=== PATIENT | male | born 1975 | race Caucasian/White ===

== ENCOUNTER 2018-08-03 21:16 | Emergency (ER) | payer MEDICAID ==
[~2018-08-03] VITALS: Ht 175.3 cm; Wt 88.6 kg
[2018-08-03 21:50] VITALS: Ht 175.3 cm; Wt 88.6 kg
[2018-08-03] MEDS ORDERED: [UNRECOGNIZED DRUG - OTHER] (21:51)
[2018-08-03] MEDS ORDERED: IBUPROFEN100 MG/5 M (21:51)
[2018-08-03] MEDS ORDERED: ALEVE220 MG (21:51)
[2018-08-04] MEDS ORDERED: TYLENOL W/CODEI1 TAB PO (01:30)
[2018-08-04] MEDS ORDERED: VIBRAMYCIN 100100 MG PO (01:30)
[2018-08-04 02:04] VITALS: BP 128/90
== END 2018-08-04 02:04 | disposition home or self-care (01) ==
LOC: D.ER 21:16
DX: L03.115 Cellulitis of right lower limb (principal); F17.200 Nicotine dependence, unspecified, uncomplicated

== ENCOUNTER 2018-12-30 08:40 | Emergency (ER) | payer MEDICAID ==
[~2018-12-30] VITALS: Ht 175.3 cm; Wt 90.9 kg
[~2018-12-30 08:40] MED LIST: ALEVE220 MG; IBUPROFEN100 MG/5 M; TYLENOL W/CODEI1 TAB PO; VIBRAMYCIN 100100 MG PO; [UNRECOGNIZED DRUG - OTHER]
[2018-12-30 09:00] VITALS: Ht 175.3 cm; Wt 90.9 kg
[2018-12-30] MEDS ORDERED: XARELTO10 MG PO (09:08)
[2018-12-30 09:49] LABS: BASOPHILS 0.8 % (0-2); EOSINOPHILS 5.5 % (0-7); HEMATOCRIT 38.6 % (42.0-54.0); HEMOGLOBIN 12.1 g/dL (13.5-17.5); IMMATURE GRANULOCYTES 0.2 % (0-5); LYMPHOCYTES 20.2 % (15-50); MCH 23.1 pg (26.0-34.0); MCHC 31.3 g/dL (31.0-37.0); MCV 73.7 fL (80.0-100.0); MEAN PLATELET VOLUME 9.2 fL (7.4-10.4); MONOCYTES 9.2 % (2-11); NEUTROPHILS 64.1 % (40-80); PLATELET COUNT 263 10x3/uL (130-400); RBC 5.24 10x6/uL (4.20-6.10); RDW 15.6 % (11.5-14.5); WBC 8.5 10x3/uL (4.8-10.8)
[2018-12-30 09:58] LABS: INR 1.08 (0.85-1.17); PROTIME 13.5 SECONDS (11.6-15.0)
[2018-12-30 09:59] LABS: APTT 32.2 SECONDS (22.8-39.4)
[2018-12-30 10:00] LABS: D-DIMER-QUANTITATIVE 1.17 ug/mLFEU (0.20-0.54)
[2018-12-30 10:03] LABS: ALBUMIN 3.5 g/dL (3.4-5.0); ALKALINE PHOSPHATASE 67 U/L (46-116); ALT (SGPT) 18 U/L (10-68); BILIRUBIN - TOTAL 0.39 mg/dL (0.2-1.3); CALC OSMOLALITY 277 mosm/kg (275-300); CALCIUM 8.9 mg/dL (8.5-10.1); CARBON DIOXIDE 25.1 mmol/L (21.0-32.0); CHLORIDE - SERUM 100 mmol/L (98-107); CREATININE - SERUM 1.2 mg/dL (0.6-1.3); GLUCOSE 117 mg/dL (74-106); POTASSIUM - SERUM 3.6 mmol/L (3.5-5.1); PROTEIN - SERUM 7.8 g/dL (6.4-8.2); SODIUM 138 mmol/L (136-145); UREA NITROGEN 14 mg/dL (7-18); eGFR NON AFRICAN AMERICAN 70 mL/min (90-120)
[2018-12-30 10:08] LABS: TROPONIN-I < 0.017 ng/mL (0.000-0.060)
[2018-12-30 15:59] VITALS: BP 133/88
--- NOTE | 2019-01-02 11:46 | EC ---
PATIENT:NEETA NGUYEN DATE OF SERVICE: 12/30/18 SEX: M MEDICAL RECORD: [id number] DATE OF : [birth year] LOCATION:D.ER AGE OF PATIENT: 43 ADMISSION DATE: 12/30/18 REFERRING PHYSICIAN: INTERPRETING PHYSICIAN: JONY BENITEZ MD ECHOCARDIOGRAM REPORT ECHO CHARGES 4 ECHO COMPLETE Date: 12/30/18 CLINICAL DIAGNOSIS: ECHOCARDIOGRAPHIC MEASUREMENTS (adult normal given) AC root (d.<3.7cm) 3.2 cm LV Septum d (<1.2 cm> 1.1 cm Valve Excursion 2.2 cm LV Septum (systole) 1.7 cm Left Atria (s.<4.0cm> 3.5 cm LVPW d(<1.2cm) 1.3 cm RV (d.<2.3cm) 3.5 cm LVPW (sytole) 1.4 cm LV diastole(<5.6CM) 4.6 cm MV E-F(>70mm/sec) cm LV systole 3.5 cm LVOT Diameter 1.6 cm MV exc.(>10mm) cm Est.ejection fraction (50-75%) % DOPPLER: LVIT cm/sec A 46 cm/sec E 96 cm/sec LA cm/sec RVSP 77.8 mmHg LVOT 95 cm/sec AOP1/2T m/s Asc. Ao 121 cm/sec RVOT 51 cm/sec RA cm/sec PA 93 cm/sec AV Gradient Peak 5.8 mmHg AV Mean 3.2 mmHg AV Area 1.4 cm MV Gradient Peak 4.2 mmHg MV Mean 2.2 mmHg MV Area cm COMMENTS: Drama Director: Palma YEBOAH Vessel Ordinary Seaman: Diann Benitez TAPE# PACS Pericardial Effusion N DATE OF SERVICE: 12/30/2018 FINDINGS: 1. Left ventricular chamber size is within normal limits. Left ventricular systolic function is normal. Overall ejection fraction estimated at 50%. 2. Left atrium is within normal limits at 4.0 cm. Right atrium and right ventricular chamber sizes are moderately dilated. 3. Valvular structures have normal structure and motion. 4. Doppler interrogation reveals moderate tricuspid regurgitation. No other valvular insufficiency or stenosis. Pulmonary systolic pressure is markedly ECHOCARDIOGRAM REPORT [id number] NEETA NGUYEN elevated, estimated 78 mmHg. 5. No evidence of pericardial effusion or left ventricular thrombus. TRANSINT:[id number] Voice Confirmation ID: [id number] DOCUMENT ID: [id number] JONY BENITEZ MD at 1146 CC: [id number] DICTATION DATE: 12/30/18 170 HAND CROWN POUNCER: 12/31/18 0042 DEP ER 12/30/18 [place] [id number] [place] [id number]
--- NOTE | 2019-01-02 11:46 | CN ---
PATIENT NAME:NEETA NGUYEN MEDICAL RECORD: [id number] : 73 LOCATION:D.ER ADMIT DATE: ACCOUNT: [id number] CONSULTING PHYSICIAN: JONY MONTANEZ MD REFERRING PHYSICIAN: TALYA MAYFIELD MD DATE OF CONSULTATION: 12/30/2018 DIAGNOSES: 1. Shortness of breath. 2. Pulmonary hypertension. 3. Tricuspid regurgitation. 4. Abnormal ECG, left bundle branch block. 5. Angina. 6. Family history of coronary artery disease. HISTORY OF PRESENT ILLNESS: This is a gentleman who presents with 2 weeks of increasing shortness of breath, some intermittent chest discomfort. He had an echocardiogram here today revealing pulmonary hypertension with pulmonary systolic pressures in the 70s and moderate severe tricuspid regurgitation. He has a family history of coronary artery disease. His EKG has a left bundle branch block. We do not have old comparison EKG. His troponin is normal. His systolic blood pressures in the 120 to 140 range, heart rate is in the 70s. PHYSICAL EXAMINATION: GENERAL APPEARANCE: Well-nourished, well-developed, appears stated age. Level of distress, comfortable. PSYCHIATRIC: Mental status, alert, normal affect. Orientation, oriented to time, place and person. EYES: Lids and conjunctiva, noninjected. No discharge, no pallor. ENT: Lips, teeth, gums, normal dentition. Oropharynx, no cyanosis, no pallor. NECK: Carotid arteries, bilateral normal upstroke, no bruits, no thrills. JUGULAR VEINS: No jugular venous pressure or distention. CERVICAL LYMPH NODES: Nontender, nonenlarged. THYROID: Not enlarged. Nontender. No nodules. LUNGS: Respiratory effort, unlabored. CHEST: Normal curvature. No thoracic deformity. No chest wall tenderness. Percussion, resonant. Auscultation, clear. No wheezes, no rales, no rhonchi. CARDIOVASCULAR: Precordial exam, nondisplaced. No heaves or pericardial thrills. Rate and rhythm, regular. Heart sounds, normal S1, normal S2. No S3, no gallop, no rub. Systolic murmur, not heard. Diastolic murmur, not heard. EXTREMITIES: No cyanosis, no edema. Peripheral pulses, full and equal in all extremities, except as noted. No bruits appreciated. ABDOMEN: Soft, nondistended. Normal aorta. No bruit. Nontender. No masses. Liver, nontender, no hepatomegaly. Spleen, nontender, no splenomegaly. MUSCULOSKELETAL: No joint tenderness. No joint swelling. No erythema. NEUROLOGICAL: Normal gait, normal strength, normal tone. SKIN: Warm and dry. OVERALL IMPRESSION: Shortness of breath with pulmonary hypertension, not sure of its etiology, very well may be ischemic heart disease. We will put him on Imdur 60 mg b.i.d. lower his pulmonary pressures and we will see him back in the clinic this week. He continues to have symptomatology, would consider coronary angiography. TRANSINT:[id number] Voice Confirmation ID: [id number] DOCUMENT ID: [id number] CONSULT REPORT [id number] NEETA NGUYEN, JONY PAREDES at 1146 CC: [id number] DICTATION DATE: 12/30/18 1535 SOFT SUGAR CUTTER: 12/31/18 0140 DEP ER 12/30/18 [place] [id number] [place] [address]
== END 2018-12-30 15:55 | disposition home or self-care (01) ==
LOC: D.ER 08:40
PROVIDERS: Family Medicine
DX: R06.09 Other forms of dyspnea (principal); Z86.711 Personal history of pulmonary embolism; I27.20 Pulmonary hypertension, unspecified; F17.200 Nicotine dependence, unspecified, uncomplicated

== ENCOUNTER 2019-02-08 15:57 | Observation (INO) | payer MEDICAID ==
[~2019-02-08] VITALS: Ht 175.3 cm; Wt 93.0 kg
[~2019-02-08 15:57] MED LIST changes: +XARELTO10 MG PO
[2019-02-08] MEDS ORDERED: [UNRECOGNIZED DRUG - REMARK] (16:05)
[2019-02-08 17:16] LABS: BASOPHILS 0.2 % (0-2); EOSINOPHILS 1.6 % (0-7); HEMATOCRIT 40.1 % (42.0-54.0); HEMOGLOBIN 12.4 g/dL (13.5-17.5); IMMATURE GRANULOCYTES 0.7 % (0-5); LYMPHOCYTES 7.1 % (15-50); MCH 22.8 pg (26.0-34.0); MCHC 30.9 g/dL (31.0-37.0); MCV 73.6 fL (80.0-100.0); MEAN PLATELET VOLUME 8.8 fL (7.4-10.4); MONOCYTES 6.8 % (2-11); NEUTROPHILS 83.6 % (40-80); PLATELET COUNT 268 10x3/uL (130-400); RBC 5.45 10x6/uL (4.20-6.10); RDW 16.7 % (11.5-14.5); WBC 12.2 10x3/uL (4.8-10.8)
[2019-02-08 17:36] LABS: ALBUMIN 3.2 g/dL (3.4-5.0); ALKALINE PHOSPHATASE 87 U/L (46-116); ALT (SGPT) 20 U/L (10-68); BILIRUBIN - TOTAL 0.71 mg/dL (0.2-1.3); CALC OSMOLALITY 275 mosm/kg (275-300); CALCIUM 8.9 mg/dL (8.5-10.1); CARBON DIOXIDE 28.5 mmol/L (21.0-32.0); CHLORIDE - SERUM 99 mmol/L (98-107); CREATININE - SERUM 1.6 mg/dL (0.6-1.3); GLUCOSE 129 mg/dL (74-106); POTASSIUM - SERUM 3.7 mmol/L (3.5-5.1); SODIUM 136 mmol/L (136-145); UREA NITROGEN 19 mg/dL (7-18); eGFR NON AFRICAN AMERICAN 50 mL/min (90-120)
[2019-02-08 17:43] LABS: UDS - AMPHET POSITIVE QUAL (NEGATIVE); UDS - BARB NEGATIVE QUAL (NEGATIVE); UDS - BENZO NEGATIVE QUAL (NEGATIVE); UDS - COCAINE NEGATIVE QUAL (NEGATIVE); UDS - OPIATE NEGATIVE QUAL (NEGATIVE); UDS - PCP NEGATIVE QUAL (NEGATIVE); UDS - THC POSITIVE QUAL (NEGATIVE)
[2019-02-08 17:44] LABS: CKMB 3.6 U/L (0.0-3.6); MAGNESIUM - SERUM 2.5 mg/dL (1.8-2.4); TROPONIN-I 0.024 ng/mL (0.000-0.060)
[2019-02-08 17:45] LABS: APPEARANCE CLEAR (CLEAR); BILIRUBIN NEGATIVE (NEGATIVE); COLOR YELLOW (YELLOW); GLUCOSE NEGATIVE (NEGATIVE); KETONE NEGATIVE (NEGATIVE); NITRITE NEGATIVE (NEGATIVE); PROTEIN TRACE mg/dL (NEGATIVE); SPECIFIC GRAVITY 1.025 (1.005-1.020); UROBILINOGEN NORMAL (NORMAL)
[2019-02-08 18:27] VITALS: BP 128/72; BMI 30.3
--- NOTE | 2019-02-08 19:40 | NUR ---
WALKING AROUND ROOM. RESTLESS. ALERT AND ORIENTED X4. RESP EVEN AND NONLABORED. BBS CTA. LARGE HEMATOMA NOTED TO RT FOREHEAD. HANDS RED. SCAB NOTED TO RT POSTERIOR CALF. DENIES PAIN. SALINE LOCK NOTED TO LT AC. STATE HE IS HUNGRY. GIVEN SANDWICH TRAY. SR ELEVATED X2. CL IN REACH.
[2019-02-08 19:59] VITALS: BP 128/66
[2019-02-09 01:10] VITALS: BP 115/69
--- NOTE | 2019-02-09 01:14 | NUR ---
AWAKENED FOR V/S. DENIES NEEDS. NO DISTRESS. CL IN REACH.
[2019-02-09 04:32] VITALS: BP 125/78
--- NOTE | 2019-02-09 07:02 | NUR ---
INITIAL ROUNDING, PATIENT RESTING IN BED, FULLY DRESSED INCLUDING BOOTS. PATIENT DENIES PAIN, ON ROOM AIR. CALL LIGTH IN REACH
[2019-02-09 08:13] VITALS: BP 116/81
[2019-02-09 10:24] LABS: % SATURATION 11 % (15-55); IRON 42 ug/dl (35-150); TOTAL IRON BIND CAPACITY 353 ug/dl (260-445); UNSAT IRON BIND CAPACITY 311 ug/dl (150-375)
[2019-02-09 12:12] VITALS: BP 118/75
[2019-02-09 13:24] VITALS: Ht 175.3 cm; Wt 93.0 kg
[2019-02-09 15:34] VITALS: BP 134/78
--- NOTE | 2019-02-09 16:04 | MORECARE ---
CASE MANAGEMENT DISCHARGE SUMMARY PATIENT: NEETA NGUYEN UNIT: [id number] ADM DATE: 02/08/19 AGE: 43 : [birth year] SEX: M ROOM/BED: D.1204 AUTHOR: ZENA RAMÍREZ PHYSICIAN: REFERRING PHYSICIAN: PRISCILA BAIRES MD DATE OF SERVICE: 02/09/19 Discharge Plan Patient Name: NEETA NGUYEN Facility: [facility] : 1975 Planned Disposition: Home Anticipated Discharge Date: 02/09/19 Discharge Date: Expected LOS: 1 Initial Reviewer: [email or web address] Initial Review Date: 02/09/2019 Generated: 02/09/19 5:04 pm Comments DCP- Discharge Planning Updated by [email or web address]: Marilu Rodriguez on 02/09/19 3:[address] CM met with patient about discharge planning / needs. Patient states his plan is to discharge to home. Denies the need for home health or other discharge planning needs except transportation home. CM will call taxi to arrange transport home upon hospital DC. Patient states his home environment is safe. States he does not have a PCP. CM gave patient Physician Referral phone number and phone number for [facility]. CM will continue to follow and assist as needed with discharge planning / needs. DCPIA - Discharge Planning Initial Assessment Updated by [email or web address]: Marilu Rodriguez on 02/09/19 3:59 pm * Is the patient Alert and Oriented? Yes * How many steps to enter\exit or inside your home? * PCP none * Pharmacy [facility] * Preadmission Environment Home Alone * ADLs Independent * Equipment None * List name and contact numbers for known caregivers / representatives who currently or will assist patient after discharge: none * Verbal permission to speak to the caregivers and representatives has been obtained from the patient. N/A * Community resources currently utilized None * Additional services required to return to the preadmission environment? No * Can the patient safely return to the preadmission environment? Yes * Has this patient been hospitalized within the prior 30 days at any hospital? No Patient Name: NEETA NGUYEN Page [id number] at 1604 All edits/amendments must be made on the electronic document DICTATION DATE: 02/09/191603 BLOWN FILM EXTRUSION OPERATOR: ERLIN 02/09/191603 RPT#: [id number] AL DATE: STATUS: ADM IN [facility] [address] [place] [address] END OF REPORT
--- NOTE | 2019-02-09 16:22 | NUR ---
WALKED TO THE FRONT DOOR WITH THE PATIENT, CMS EXPERT CAB WAS WAITING IN THE ROUND ABOUT.
--- NOTE | 2019-02-09 16:36 | MORECARE ---
CASE MANAGEMENT DISCHARGE SUMMARY PATIENT: NEETA NGUYEN UNIT: [id number] ADM DATE: 02/08/19 AGE: 43 : 73 SEX: M ROOM/BED: D.1204 AUTHOR: ZENA RAMÍREZ PHYSICIAN: REFERRING PHYSICIAN: PRISCILA BAIRES MD DATE OF SERVICE: 02/09/19 Discharge Plan Patient Name: NEETA NGUYEN Facility: [facility]:[place] : 1975 Planned Disposition: Home Anticipated Discharge Date: 02/09/19 Discharge Date: 02/09/2019 Expected LOS: 1 Initial Reviewer: [email or web address] Initial Review Date: 02/09/2019 Generated: 02/09/19 5:35 pm Comments DCP- Discharge Planning Updated by [email or web address]: Marilu Rodriguez on 02/09/19 3:[address] CM met with patient about discharge planning / needs. Patient states his plan is to discharge to home. Denies the need for home health or other discharge planning needs except transportation home. CM will call taxi to arrange transport home upon hospital DC. Patient states his home environment is safe. States he does not have a PCP. CM gave patient Physician Referral phone number and phone number for [facility]. CM will continue to follow and assist as needed with discharge planning / needs. DCPIA - Discharge Planning Initial Assessment Updated by [email or web address]: Marilu Rodriguez on 02/09/19 3:59 pm * Is the patient Alert and Oriented? Yes * How many steps to enter\exit or inside your home? * PCP none * [facility] * Preadmission Environment Home Alone * ADLs Independent * Equipment None * List name and contact numbers for known caregivers / representatives who currently or will assist patient after discharge: none * Verbal permission to speak to the caregivers and representatives has been obtained from the patient. N/A * Community resources currently utilized None * Additional services required to return to the preadmission environment? No * Can the patient safely return to the preadmission environment? Yes * Has this patient been hospitalized within the prior 30 days at any hospital? No Last DP export: 02/09/19 3:04 p Patient Name: NEETA NGUYEN Page [id number] at 1636 All edits/amendments must be made on the electronic document DICTATION DATE: 02/09/19 163 BECK OPERATOR: ERLIN 02/09/19 1635 RPT#: [id number] DC DATE:02/09/19 STATUS: DIS IN [facility] [address] [place] [address] END OF REPORT
[2019-02-10 09:16] LABS: FOLATE (FOLIC ACID) - SERUM 8.4 ng/mL (>3.0)
== END 2019-02-09 16:22 | disposition home or self-care (01) ==
LOC: D.ER 15:57 → D.M3 17:14 → D.EDHOLD 17:14 → OBSVTIME 17:26 → D.M3 17:29
PROVIDERS: Emergency Medicine; ADMIT Internal Medicine Nephrology; ATTEND Internal Medicine Nephrology
DX: R55 Syncope and collapse (principal); F15.10 Other stimulant abuse, uncomplicated; F10.10 Alcohol abuse, uncomplicated; L03.115 Cellulitis of right lower limb; D50.9 Iron deficiency anemia, unspecified; N17.9 Acute kidney failure, unspecified; F17.213 Nicotine dependence, cigarettes, with withdrawal